=== PATIENT | male | born 1950 ===

== ENCOUNTER 2018-06-25 14:58 | Emergency (ER) | payer MEDICARE, OTHER ==
[2018-06-25 15:03] VITALS: BMI 21.4
[2018-06-25 15:11] VITALS: RESP 18; TEMP 98.3
--- NOTE | 2018-06-25 15:38 | ED PDOC ---
Arrival/HPI - General Historian: Patient, Caregiver - History of Present Illness Narrative History of Present Illness (Text): 06/25/18 15:36 67-year-old male presents today with a four-day history of cough and nasal congestion and sore throat. Patient denies fevers or chills. Patient states for the past 4 days he's been having a productive cough with green sputum. He denies abdominal pain. No vomiting or diarrhea. He denies leg swelling. He denies shortness of breath. 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 oper heart. 7 stent - Anesthesia Hx Anesthesia Reactions: No Hx Malignant Hyperthermia: No <Drea Will - Last Filed: 06/25/18 17:41> Family/Social History - Physician Review Nursing Documentation Reviewed: Yes Family/Social History: Unknown Family HX Smoking Status: Never Smoked Hx Alcohol Use: No Hx Substance Use: No <Drea Will - Last Filed: 06/25/18 17:41> Allergies/Home Meds <Drea Will - Last Filed: 06/25/18 17:41> <Praneeth Aaron - Last Filed: 06/25/18 17:58> Allergies/Adverse Reactions: Allergies sulfamethoxazole [From Bactrim] Allergy (Verified 06/25/18 15:09) ITCHING trimethoprim [From Bactrim] Allergy (Verified 06/25/18 15:09) ITCHING Review of Systems - Review of Systems Constitutional: absent: Fatigue, Fevers ENT: Sore Throat, Sinus Congestion Respiratory: Cough, Sputum. absent: SOB, Wheezing Cardiovascular: absent: Chest Pain Gastrointestinal: absent: Abdominal Pain, Vomiting Musculoskeletal: absent: Joint Swelling Skin: absent: Rash, Pruritis Neurological: absent: Headache, Dizziness Psychiatric: absent: Anxiety, Depression <Drea Will - Last Filed: 06/25/18 17:41> Physical Exam Vital Signs Reviewed: Yes Vital Signs Temp Pulse Resp BP Pulse Ox 06/25/18 14:59 98.3 F 52 L 18 133/71 96 Temperature: Afebrile Blood Pressure: Normal Pulse: Regular Respiratory Rate: Normal Appearance: Positive for: Well-Appearing, Non-Toxic, Comfortable Pain Distress: None Mental Status: Positive for: Alert and Oriented X 3 - Systems Exam Head: Present: Atraumatic Extroacular Muscles: Present: EOMI Conjunctiva: Present: Normal Ears: Present: Normal, NORMAL TM Mouth: Present: Moist Mucous Membranes. No: Drooling, Trismus Pharnyx: Present: Normal. No: ERYTHEMA, EXUDATE, TONSILS ENLARGED Nose (Internal): Present: Clear Mucous Neck: Present: Normal Range of Motion, Trachea Midline Respiratory/Chest: Present: Clear to Auscultation, Good Air Exchange. No: Respiratory Distress, Accessory Muscle Use, Decreased Breath Sounds, Rales, Retracting, Rhonchi, Tachypneic Cardiovascular: Present: Regular Rate and Rhythm Abdomen: No: Tenderness, Distention, Rebound, Guarding <Drea Will - Last Filed: 06/25/18 17:41> Vital Signs Temp Pulse Resp BP Pulse Ox 06/25/18 14:59 98.3 F 52 L 18 133/71 96 <Praneeth Aaron - Last Filed: 06/25/18 17:58> Medical Decision Making ED Course and Treatment: 06/25/18 15:38 Patient is nontoxic well-appearing in no distress. Vital signs are stable. chest xray; FINDINGS: LUNGS: No active pulmonary disease. PLEURA: Pleural effusion versus pleural thickening left costophrenic angle and costophrenic sulcus. No right pleural effusion. No pneumothorax. CARDIOVASCULAR: No aortic atherosclerotic calcification present. Normal cardiac size. CABG. AICD. No congestive change. OSSEOUS STRUCTURES: No significant abnormalities. VISUALIZED UPPER ABDOMEN: Normal. OTHER FINDINGS: None. IMPRESSION: Possible small left pleural effusion. Zithromax po I advised follow up with primary care physician within the next 2 days. I advised increase fluids and return if symptoms worsen persist or if new symptoms develop. Advised patient of x-ray results which showed possible small pleural effusion. Stressed importance of follow-up with the primary care physician for close follow-up. Patient verbalizes understanding of discharge instructions and need for immediate followup. all aspects of this case were discussed the attending of record. IMPRESSION; cough Zithromax one tablet once daily x4 days Followup with primary care physician the next 2 days Return if symptoms worsen persist or if new symptoms develop - RAD Interpretation Radiology Orders: 06/25/18 15:36 CHEST TWO VIEWS (PA/LAT) [RAD] Stat <Drea Will - Last Filed: 06/25/18 17:41> - RAD Interpretation Radiology Orders: 06/25/18 15:36 CHEST TWO VIEWS (PA/LAT) [RAD] Stat - Medication Orders Current Medication Orders: Discontinued Medications Azithromycin (Zithromax) 500 mg PO STAT STA; Protocol Stop: 06/25/18 17:28 Last Admin: 06/25/18 17:57 Dose: 500 mg <Praneeth Aaron - Last Filed: 06/25/18 17:58> - PA / [employer]ODLE [employer]ER / Resident Statement / has reviewed & agrees with the documentation as recorded. <Praneeth Aaron - Last Filed: 06/25/18 17:58> Disposition/Present on Arrival - Present on Arrival Any Indicators Present on Arrival: No History of DVT/PE: No History of Uncontrolled Diabetes: No Urinary Catheter: No History of Decub. Ulcer: No History Surgical Site Infection Following: None - Disposition Have Diagnosis and Disposition been Completed?: Yes Disposition Time: 15:39 Patient Plan: Discharge <Drea Will - Last Filed: 06/25/18 17:41> <Praneeth Aaron - Last Filed: 06/25/18 17:58> - Disposition Diagnosis: Cough Disposition: HOME/ ROUTINE Condition: GOOD Discharge Instructions (ExitCare): Cough, Adult (DC) Additional Instructions: Zithromax one tablet once daily x4 days Followup with primary care physician the next 2 days Return if symptoms worsen persist or if new symptoms develop Prescriptions: Azithromycin [Zithromax] 250 mg PO DAILY #4 tab Referrals: Desiree Leone MD [Medical Doctor] - Follow up with primary Replaced By [facility] [Outside] - Follow up with primary Pavan Johnson MD [Staff Provider] - Follow up with primary Forms: [employer] (Canadian)
--- NOTE | 2018-06-25 17:27 | RAD ---
Date of service: 06/25/2018 HISTORY: cough x 4 days COMPARISON: No prior. TECHNIQUE: Chest PA and lateral FINDINGS: LUNGS: No active pulmonary disease. PLEURA: Pleural effusion versus pleural thickening left costophrenic angle and costophrenic sulcus. No right pleural effusion. No pneumothorax. CARDIOVASCULAR: No aortic atherosclerotic calcification present. Normal cardiac size. CABG. AICD. No congestive change. OSSEOUS STRUCTURES: No significant abnormalities. VISUALIZED UPPER ABDOMEN: Normal. OTHER FINDINGS: None. IMPRESSION: Possible small left pleural effusion.
[2018-06-25 18:07] VITALS: BP 142/73; PULSE 56; O2SAT 98
== END 2018-06-25 18:06 | disposition home or self-care (01) ==
LOC: ED 14:58
DX: R05 Cough (principal); E11.9 Type 2 diabetes mellitus without complications; I10 Essential (primary) hypertension